=== PATIENT | female | born 1955 | race Caucasian/White ===

== ENCOUNTER 2019-04-22 14:13 | Outpatient (CLI) | payer MEDICARE, OTHER, SELFPAY ==
--- NOTE | ~2019-04-22 | MM_ITS ---
EXAMINATION: MM screening carlos BI w melina HISTORY: Screening mammogram TECHNIQUE: Craniocaudal and mediolateral oblique 3-D tomosynthesis images were obtained and synthetic 2-D images were generated. CAD analysis was submitted and interpreted. COMPARISON: 02/24/2012 bilateral digital screening mammogram BREAST PARENCHYMAL COMPOSITION: There are scattered areas of fibroglandular density. FINDINGS: There is no evidence of suspicious mass, calcification, or architectural distortion to sugg est malignancy in either breast. There has been no suspicious interval change. IMPRESSION: 1. No mammographic evidence of malignancy. 2. Recommend routine screening mammography in one year. BI-RADS Category 1: Negative Reviewed, dictated and finalized at location A. ER USED CAR LOT
== END 2019-04-22 14:14 | disposition home or self-care (01) ==
LOC: ANHIMG 14:21
PROVIDERS: PCP Nurse Practitioner; Visit Provider Nurse Practitioner
DX: Z12.31 Encounter for screening mammogram for malignant neoplasm of breast (principal)
CPT/HCPCS: 77063; 77067

== ENCOUNTER 2022-02-24 13:01 | Outpatient (NON) | payer MEDICARE, OTHER, SELFPAY | END 2022-02-24 13:02 | disposition home or self-care (01) | LOC: ANHLAB 02-25 13:03 | PROVIDERS: PCP Nurse Practitioner; Visit Provider Nurse Practitioner | DX: D23.121 Other benign neoplasm of skin of left upper eyelid, including canthus (principal) | CPT/HCPCS: 88305 ==

== ENCOUNTER 2024-10-11 13:43 | Outpatient (CLI) | payer MEDICARE, OTHER, SELFPAY ==
--- NOTE | ~2024-10-11 | MM_ITS ---
EXAMINATION: screening [facility] BI w melina INDICATION: Asymptomatic, referred for screening mammogram COMPARISON: 04/22/2019 through 06/08/2008 TECHNIQUE: Digital Breast Tomosynthesis CC, MLO views of Both breasts were obtained with computer-aided detection to assist in interpretation of the study. FINDINGS: There are scattered areas of fibroglandular density. There is a group of microcalcifications in the superior central left breast at posterior third. Elsewhere, there are no mammographic features of malignancy. IMPRESSION: 1. Left breast Incompletely characterized group of calcifications. 2. No evidence of malignancy in the Right breast. RECOMMENDATION: Left breast Diagnostic mammogram with true lateral, and appropriate magnification views. BI-RADS Category 0: Incomplete: Needs additional imaging evaluation. Reviewed, dictated and finalized at location B. IMPRESSION: 1. Left breast Incompletely characterized group of calcifications. 2. No evidence of malignancy in the Right breast. RECOMMENDATION: Left breast Diagnostic mammogram with true lateral, and appropriate magnificati on views. BI-RADS Category 0: Incomplete: Needs additional imaging evaluation.
== END 2024-10-11 13:44 | disposition home or self-care (01) ==
LOC: CHSIMG 13:47
PROVIDERS: PCP Family Medicine; Visit Provider Family Medicine
DX: Z12.31 Encounter for screening mammogram for malignant neoplasm of breast (principal); R92.8 Other abnormal and inconclusive findings on diagnostic imaging of breast
CPT/HCPCS: 77063; 77067

== ENCOUNTER 2024-10-24 08:42 | Outpatient (CLI) | payer OTHER, MEDICARE, SELFPAY ==
--- NOTE | ~2024-10-24 | MM_ITS ---
EXAMINATION: MM diagnostic carlos LT w melina INDICATION: 69-year old female; BI-RADS 0, callback to evaluate calcifications in the left breast. COMPARISON: 10/11/2024 TECHNIQUE: Digital breast magnification CC and ML views of LEFT breast were obtained. FINDINGS: There are scattered areas of fibroglandular density. A group of pleomorphic microcalcifications that spans 0.6 cm seen in superior central LEFT breast correlates to the area of concern. IMPRESSION: Suspicious LEFT breast group of pleomorphic microcalcifications in the superior central location. Biopsy is recommended. RECOMMENDATION: Stereotactic biopsy of superior central LEFT breast calcifications. BI-RADS 4, SUSPICIOUS Reviewed, dictated and finalized at location B.
== END 2024-10-24 08:43 | disposition home or self-care (01) ==
LOC: CHSIMG 08:44
PROVIDERS: PCP Family Medicine; Visit Provider Family Medicine
DX: R92.8 Other abnormal and inconclusive findings on diagnostic imaging of breast (principal)
CPT/HCPCS: 77061; 77065; G0279

== ENCOUNTER 2024-11-18 08:30 | Outpatient (CLI) | payer MEDICARE, OTHER, SELFPAY ==
--- NOTE | ~2024-11-18 | MM_ITS ---
Please refer to stereotactic biopsy report dated 11/18/2024 for details. Reviewed, dictated and finalized at location B.
--- NOTE | ~2024-11-18 | MM_ITS ---
EXAMINATION: MM stereotactic bx LT, MM stereotactic specimen LT INDICATION: Normal calcifications in the left breast. Stereotactic core biopsy is requested evaluate for malignancy.] BREAST PARENCHYMAL COMPOSITION: Not dense: There are scattered areas of fibroglandular density. TECHNIQUE AND FINDINGS: The risks and potential benefits of the procedure were discussed with the patient and written informed consent was obtained. The patient was placed in the upright position clustered at the table with the left breast in craniocaudal compression, and the area of interest was localized and targeted utilizing digital imaging with stereotaxis. After sterile preparation of the skin, 1% lidocaine was utilized for local anesthesia at the skin puncture site and 1% lidocaine with epinephrine was utilized for deeper local anesthesia/is about the biopsy site. A 9G [employer] vacuum assisted biopsy needle was advanced to the level of the calcification of interest from a cephalad approach utilizing stereotactic guidance and a total of 6 tissue core biopsies were obtained. Specimen radiographs demonstrates that the calcifications of interest are included within the tissue cores. A tissue marker clip was then placed at the biopsy site. The needle was removed and hemostasis was achieved. The patient tolerated the procedure well and there is no evidence of significant immediate complication. The patient was given verbal as well as written postprocedural instructions prior to discharge from the department. Tissue cores were submitted to surgical pathology for histologic analysis. A 2-view left unilateral digital mammogram was obtained post procedure and this demonstrates that the tissue marker clip is in expected position.] IMPRESSION: 1. Successful stereotactic biopsy of calcifications in the upper central aspect of the left breast with post procedure mammogram for marker placement. Please refer to pathology report for histologic analysis. Reviewed, dictated and finalized at location B. IMPRESSION: 1. Successful stereotactic biopsy of calcifications in the upper central aspec t of the left breast with post procedure mammogram for marker placement. Pleas e refer to pathology report for histologic analysis.
--- OUTSIDE RECORDS SUMMARY | 2024-11-18 08:36 | XMS_ITS | Clinical Summary ---
Author Organization [facility] Address [address] [place] [address] Care Team Providers Care Powerhouse Laborer Name Role Phone Domenico Fall MD Primary Care Provider [phone] Allergies Active Allergy Reactions Criticality Noted Date Comments Codeine Nausea and Vomiting Medium 07/29/2012 Erythromycin GI Upset,Headache Medium 07/28/2012 Fentanyl GI Upset 11/19/2022 Atorvastatin Leg Pain 08/04/2019 Penicillins Rash Low 07/29/2012 Sesame Oil Other (see comment) 03/11/2023 Feels like bugs crawling on me and biting me Sulfa Antibiotics Rash Low 07/29/2012 Medications vitamin D3, cholecalciferol , 5000 UNITS capsule Take 1 capsule (125 mcg total) by mouth daily. 01/23/2015 Active [place] 3 1000 MG Cap Take 1 capsule by mouth daily. 09/19/2016 Active NON FORMULARYIndica tions:MULLEIN CAPS Take 1 capsule by mouth 2 (two) times a day. Indications: MULLEIN CAPS Active zinc gluconate 50 MG Tab Take 1 tablet (50 mg total) by mouth daily. Active multi vitamin/mineral s (THERA-M ENHANCED) tablet Take 1 tablet by mouth daily. Active ibuprofen (MOTRIN) 200 MG tablet Take 1 tablet (200 mg total) by mouth every 6 (six) hours as needed for Pain. Active Active Problems Problem Noted Date Diagnosed Date History of colon polyps 04/25/2024 Family history of colon cancer in mother 025 Gallstones 11/24/2022 Other fatigue 08/04/2019 Other hyperlipidemia 05/05/2019 Psoriasis 05/05/2019 Sciatica 03/16/2019 Other insomnia 03/16/2019 BMI 35.0-35.9,adult 03/16/2019 Bronchitis 05/07/2018 Neoplasm of uncertain behavior of skin 9 H/O multiple allergies 03/12/2018 Sinusitis, unspecified chronicity, unspecified l ocation 03/02/2018 Atypical mole 09/19/2016 Costochondritis 09/13/2015 Pleurisy 09/13/2015 Thoracic back pain 01/30/2015 Lumbago 03/22/2013 Osteoarthritis of knee 03/22/2013 Dysmetabolic syndrome X 07/28/2012 Menopausal symptoms 07/28/2012 Iritis 08/07/2009 Resolved Problems Problem Noted Date Diagnosed Date Resolved Date Screening for colon cancer 04/25/2024 0 05/02/2024 Screening for colon cancer 04/25/2024 0 06/06/2024 Screening for colon cancer 04/25/2024 0 09/19/2024 Mild obstructive sleep apnea 05/05/2019 05/28/2023 Osteoporosis 09/08/2018 11/27/2022 Osteopenia 09/02/2018 11/27/2022 Seasonal affective disorder in remission 07/28/2012 11/27/2022 Moderate recurrent major depression 07/28/2012 11/27/2022 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 Encounters Date Type Department Care Team Description 11/10/2024 Telephone [facility] Internal [address] [phone] Domenico Fall MD Question 11/09/2024 Scan [facility] Scanned, [facility] 10/28/2024 Telephone [facility] [address] [phone] Domenico Fall MD Orders (stereotactic biopsy on the left ) 10/26/2024 Telephone [facility] & Internal [address] [phone] Domenico Fall MD Radiology Results 10/24/2024 Scan [facility] Scanned, Doc Med Group Mammogram (SCAN) 10/12/2024 Telephone [facility] Internal Medicine [address] [phone] Domenico Fall MD Radiology Results 10/11/2024 Scan [facility] Scanned, Doc Med [facility] Mammogram (SCAN) 09/19/2024 Results Follow-Up [facility] [address] [place] [id number] Rashawn Cerrato MD Pathology 09/14/2024 9:33 AM CDT Anesthesia Event [facility] [address] [place] [id number] Madison Flores CRNA 09/14/2024 9:14 AM CDT - 09/14/2024 9:44 AM CDT Surgery [facility] [address] [place] [address] Rashawn Cerrato MD Colonoscopy with polypectomies 09/14/2024 7:53 AM CDT - 09/14/2024 10:32 AM CDT Hospital Encounter [facility] [address] [place] [id number] Rashawn Cerrato MD Discharge Disposition: Home or Self Care (Routine Discharge) 09/14/2024 Travel 09/05/2024 Patient Outreach [facility] [address] [phone] Harman, Sharlene Key MA Other (AETNA) from Last 3 Months Immunizations Immunization Administration Dates Next Due Fluzone High Dose - >Age 65 (Prefilled Syringe) 12/19/2021,12/08/2019 Influenza (Generic) 12/10/2012,01/29/2012 Influenza Adult (Generic) 12/04/2020,,04/28/2019(Deferr ed: Patient Refused),12/27/2015,12/27/2015,02/14/20 15,02/13/2015 [facility]ER[facility] COVID-19 BIVALENT (1 2+), MRNA, LNP-S, PF 04/10/2022 MODERNA COVID-19 (12+) MRNA, LNP-S, PF, 100 MCG/ 0.5 ML DOSE 07/23/2020,06/23/2020 [facility]ERNA COVID-19 ([employer]), MRNA, LNP-S, PF, 50 MCG/ 0.25 ML DOSE 02/19/2021 Pneumococcal (Prevnar 13) 09/02/2018,12/27/2015 Shingrix 01/01/2019,10/12/2018 Td (Tenivac) preservative free 01/28/2010 Tdap (Boostrix) 05/03/2019 Tdap (Generic) 05/03/2019 Zoster (Zostavax) 89187 Unt/0.65Ml 03/04/2012 Family History Medical History Relation Comments Liver Disease Maternal Aunt Breast Cancer Maternal Grandmother Colon Cancer Mother Lung Cancer Mother Sleep Apnea Mother Uterine Cancer Mother Sleep Apnea Sister Relation Status Comments Father Maternal Aunt Maternal Grandmother Mother Sister Social History Tobacco Use Types Packs/Day Years Used Date Smoking Tobacco: Former Cigarettes 1 10 0 03/24/1975 - 03/24/1985 Smokeless Tobacco: Never Tobacco Cessation:Counseling Given: No Alcohol Use Standard Drinks/Week Comments Not Currently 0 (1 standard drink = 0.6 oz pur e alcohol) social AUDIT-C Answer Date Recorded Frequency of Alcohol Consumption Monthly or less 03/02/2018 Average Number of Drinks 1 or 2 019 Frequency of Binge Drinking Never 02/16 PHQ-2 Answer Date Recorded Patient Health Questionnaire-2 Score 0 05/04/2024 Comments No Sex and Gender Information Value Date Recorded Sex Assigned at Female 05/04/2024 1:28 PM CDT Legal Sex Female 5:02 PM CDT Gender Identity Female 05/04/2024 1:28 PM CDT Sexual Orientation Straight 05/04/2024 1: 28 PM CDT Last Filed Vital Signs Vital Sign Reading Time Taken Comments Blood Pressure 113/70 09/14/2024 10:30 AM CDT Pulse 71 09/14/2024 10:30 AM CDT Temperature 36.6 C (97.9 F) 09/14/2024 8:22 AM CDT Respiratory Rate 16 09/14/2024 10:30 AM CDT Oxygen Saturation 100% 09/14/2024 10:30 AM CDT Inhaled Oxygen Concentration - - Weight 87.1 kg (192 lb) 09/05/2024 11:14 AM CDT Height 167.6 cm (5' 6) 09/05/2024 11:14 AM CDT Body Mass Index 30.99 09/05/2024 11:14 AM CDT Plan of Treatment Health Maintenance Due Date Last Done Comments Pneumococcal Vaccine: 50+ Years (2 of 2 - PPSV23) 09/03/2019 09/02/2018, 12/27/2015 Annual Medicare Wellness Visit 04/09/2020 04/08/2019 COVID-19 Vaccine ( - season) 2024 04/10/2022, 02/19/2021, 07/23/2020, Additional history exists Influenza Adult (#1) 2024 12/19/2021, 12/04/2020, 12/08/2019, Additional history exists Mammogram Screening 10/24/2026 10/24/2024, 10/11/2024, 04/22/2019 RSV Immunization or 60+ Years (1 - 1-dose 75+ series) 2028 DTaP, Tdap and Td Vaccines (3 - Td or Tdap) 05/02/2029 05/03/2019, 05/03/2019, 01/28/2010 Colorectal Cancer Screening Colonoscopy (10 Years) 09/14/2034 09/14/2024, Zoster Vaccines Completed 01/01/2019, 09/17, 03/04/2012 Hepatitis C Completed 04/12/2019 Dexa Scan (General) Completed 04/28/2019 PHQ-2 (Physician Marshall) Completed 05/04/2024 Meningococcal B Vaccine Aged Out No l onger eligible based on patient's age to complete this topic Meningococcal Vaccine Aged Out No francoise nancy eligible based on patient's age to complete this topic RSV Immunizations Under 20 Months Aged Out No longer eligible based on patient's age to complete this topic Procedures Procedure Name Priority Date/Time Associated Diagnosis Comments MAMMOGRAM GENERIC (SCAN ORDER) 10/24/2024 MAMMOGRAM GENERIC (SCAN ORDER) 10/11/2024 COLONOSCOPY SCREENING 09/14/2024 9:33 AM CDT Screening for colon cancer History of colon polyps Family history of colon cancer in mother Case Notes C PATHOLOGY Routine 09/14/2024 12:00 AM CDT BONE DENSITY/DEXA Routine 04/28/2019 2:0 1 PM CDT Medicare annual wellness visit, initial HEPATITIS C ANTIBODY Routine 04/12/2019 12:29 PM MANAGER ETHICS Medicare annual wellness visit, initial Osteoporosis Menopausal symptoms BMI 35.0-35.9,adult COLONOSCOPY Routine MANAGER ETHICS from Last 3 Months or Most Recently Relevant to Health Maintenance Results * MAMMOGRAM GENERIC (SCAN ORDER) (10/24/2024) Only the most recent of2 resultswithin the time period is included. Anatomical Region Laterality Modality Other 10/24/2024 us Doc Med Group Scanned SCANNING Final Resu lt * Pathology (09/14/2024 12:00 AM CDT) PATHOLOGY [facility] Department of Laboratory Medicine [address] [place] [id number] , extension [id number] Pathology Report Surgical Pathology Report Name: SOFI POE Specimen #: [id number] Age: 4 1955 (Age: 69) Location: [facility] Sex: F Procedure Date: 09/14/2024 Hospital #: [id number] Date Received: 09/15/2024 Date Reported: 09/16/2024 Provider: RASHAWN CERRATO MD Source: Colon, ascending, polyp Clinical History: Screening colonoscopy, history of colon polyps, and family history of colon cancer. FINAL DIAGNOSIS: Colon, ascending, polypectomy: - Sessile serrated adenoma Gross Description: Received in formalin, labeled with a patient label and as ascending colon polyps is a 0.2 cm piece of white-jenkins tissue and a 0.6 x 0.5 x 0.4 cm brown-jenkins polyp. The base is identified and inked black on the polyp. The polyp is bisected. The specimen is entirely submitted in cassette 1. Gross examination (when applicable) was performed at [facility], [address] [facility], [place] [address]. This case was interpreted and signed out at [facility], [address] [place] [address]. Electronically Signed Out JA CRONIN MD [facility] TISSUE COLON STRUCTURE / Unknown 09/14/2024 9:47 AM CDT us Rashawn Cerrato MD PATHOLOGY/CYTOLOGY ORDERABLES Fi nal Result [facility] [address] [place] [address], [id number] * BONE DENSITY/DEXA (04/28/2019 2:01 PM CDT) Anatomical Region Laterality Modality Bone Bone Density 04/28/2019 3:48 PM CDT Impressions 04/28/2019 3:49 PM CDT FINDINGS AND IMPRESSION: Examination performed on a [employer] SL .: LUMBAR SPINE L2-L4: 1. BMD: 1.293 g/cm2. 2. T score: 1.9. Previous T score: No previous available. 3. WHO classification: Above normal young adult range. 4. Fracture risk: Negligible. LEFT FEMORAL NECK: 1. BMD: 0.945 g/cm2. 2. T score: 0.9. Previous T score: No previous available. 3. WHO classification: Above normal young adult range. 4. Fracture risk: Negligible. Voice recognition software utilized. Interpreted By: Maged Ivy, 04/28/2019 3:48 PM Narrative 04/28/2019 3:49 PM CDT Examination: BONE DENSITY/DEXA Exam date/time: 04/28/2019 1:24 PM Comparison studies:No previous available. Clinical history: Encounter for general adult medical examination without abnormal findings Procedure Note Maged vIy MD - 04/28/2019 Examination: BONE DENSITY/DEXA Exam date/time: 04/28/2019 1:24 PM Comparison studies:No previous available. Clinical history: Encounter for general adult medical examinationwithout abnormal findings FINDINGS AND IMPRESSION: Examination performed on a [employer] SL .: LUMBAR SPINE L2-L4: 1. BMD: 1.293 g/cm2. 2. T score: 1.9. Previous T score: No previous available. 3. WHO classification: Above normal young adult range. 4. Fracture risk: Negligible. LEFT FEMORAL NECK: 1. BMD: 0.945 g/cm2. 2. T score: 0.9. Previous T score: No previous available. 3. WHO classification: Above normal young adult range. 4. Fracture risk: Negligible. Voice recognition software utilized. Interpreted By: Maged Ivy, 04/28/2019 3:48 PM Mandi Carroll NP DEXA Final Result * HEPATITIS C ANTIBODY (04/12/2019 12:29 PM MANAGER ETHICS) HEPATITIS C AB NON-REACTI VE NON-REACTI VE 04/12/2019 8:35 PM MANAGER ETHICS [facility] 04/12/2019 12:2 9 PM MANAGER ETHICS Mandi Carroll NP LABORATORY Final Result Performing Organization Address [facility] de Phone Number [facility] [address] [place] [address], [place] [phone] * Colonoscopy ( MANAGER ETHICS) Narrative [facility] TO EPIC CONVERSION - MANAGER ETHICS Documented hx of procedure Procedure Note , Generic Conversion, - 12/20/2017 Documented hx of procedure Generic Conversion Md OLGUIN GI PROCEDURE ORDERABLES Final Result [facility] TO EPIC CONVERSION from Last 3 Months or Most Recently Relevant to Health Maintenance Insurance [facility] AETNA MEDICARE Care Teams Powerhouse Laborer Relationship Specialty [place] [address] [place] [address] PCP - General FAMILY PRACTICE 06/01/20
--- OUTSIDE RECORDS SUMMARY | 2024-11-18 08:36 | XMS_ITS | Encounter Summary ---
Author Organization [facility] Address [address] [place] [address] Care Team Providers Care Data Modeler Name Role Phone Domenico Fall MD Primary Care Provider [phone] Encounter Details Date Type Department Care Team (Latest Contact Info) Description 11/09/2024 Scan [facility] Scanned, Doc Med Group Social History Tobacco Use Types Packs/Day Years Used Date Smoking Tobacco: Former Cigarettes 1 10 0 03/24/1975 - 03/24/1985 Smokeless Tobacco: Never Alcohol Use Standard Drinks/Week Comments Not Currently [...] Orientation Straight 05/04/2024 1: 28 PM CDT documented as of this encounter Plan of Treatment Not on file documented as of this encounter Visit Diagnoses Not on filedocumented in this encounter Additional Health Concerns Assessment Noted Time PHQ-9 Depression Total Score: 6 05/05/19 25 1:26 PM CDT documented as of this encounter Care Teams Data Modeler Relationship Specialty [place] [address] [place], [place] [id number] PCP - General FAMILY PRACTICE 06/01/20 documented as of this encounter
--- NOTE | 2024-11-18 10:03 | S_PTH ---
PATIENT: Sofi Poe LOC: [facility] U#:[id number] AGE/SX: 69/F ROOM: RE11/18/[address]: Domenico FallMD : 1955 BED: DIS: 11/18/2024 SPEC #: [id number] RECD: 11/18/24 10:15 STATUS: RYLIE RUEDA #: [id number] NATHANAEL: 11/18/24 10:[address]: EufemiaDomenico DEPT: [facility] Surgical RECD BY: Arianna [place] Tissues: A - Breast Biopsy Procedures: Hematoxylin and Eosin Stain Gross and Microscopic Level 4
== END 2024-11-18 08:31 | disposition home or self-care (01) ==
PROVIDERS: PCP Family Medicine; Visit Provider Family Medicine
DX: R92.8 Other abnormal and inconclusive findings on diagnostic imaging of breast (principal)
CPT/HCPCS: 19081; 77065; 88305